=== PATIENT | female | born 1990 | race Caucasian/White ===

== ENCOUNTER 2020-08-04 01:04 | Emergency (ER) | payer SELFPAY ==
[~2020-08-04] VITALS: Ht 167.6 cm; Wt 54.4 kg
[2020-08-04 01:13] VITALS: BP 150/99
--- NOTE | 2020-08-04 01:13 | NUR ---
BIB FOR POSSIBLE SEIZURE. PT ALTERED UPON ARRIVAL. WAS PLACED IN A BED ON MONITOR, AND AN IV LINE STARTED. PT WOKE UP AND STARTED TALKING AND ASKING FOR HER FAMILY MEMBER. DENIED SEIZURE HX AND REPORTED "I'M UNDER STRESS", CURRENTLY AWAKE AND RESPONSIVE, VSS. WILL CONT TO MONITOR ,
[2020-08-04] MEDS: LORAZEPAM 0.5 MG TABLET PO ONE (01:30)
== END 2020-08-04 02:00 | disposition home or self-care (01) ==
LOC: ER 01:04
DX: R56.9 Unspecified convulsions (principal); F41.9 Anxiety disorder, unspecified